=== PATIENT | female | born 1950 | race Caucasian/White ===

== ENCOUNTER 2019-05-30 | Emergency (ER) | payer MEDICARE ==
[~2019-05-30] MED LIST: AUGMENTIN875TAB PO; BENZONATATE200 MG PO; CELEXA40 MG PO; CRESTOR5 MG PO; DOXYCYCL HYC100 MG PO; FLONASE NASAL50 MCG; POLYTRIM OS; ROBITUSSIN AC10 ML PO; SYNTHROID175 MCG PO; ZITHROMAX500 MG PO
[2019-05-30] MEDS ORDERED: ATORVASTATIN CA20 MG PO (17:56)
[2019-05-30] MEDS ORDERED: LEVOTHYROXINE200 MCG PO (17:56)
[2019-05-30] MEDS ORDERED: AMOXICILLIN875 MG PO (18:47)
== END 2019-05-30 18:50 | disposition home or self-care (01) ==
PROC: 0HCGXZZ Extirpation of Matter from Left Hand Skin, External Approach (ICD-10-PCS; principal; 2019-05-30)
DX: S61.432A Puncture wound without foreign body of left hand, initial encounter (principal); W26.8XXA Contact with other sharp object(s), not elsewhere classified, initial encounter; W45.8XXA Other foreign body or object entering through skin, initial encounter; Y93.I9 Activity, other involving external motion